=== PATIENT | male | born 1965 | race Caucasian/White ===

== ENCOUNTER 2021-11-19 08:10 | Emergency (ER) | payer SELFPAY ==
[2021-11-19] MEDS ORDERED: GLUCAGON 1 MG/VIAL ONE (08:47)
[2021-11-19] MEDS ORDERED: ONDANSETRON 4 MG/2 ML VIAL ONE (08:48)
[2021-11-19] MEDS ORDERED: NA CHLORIDE 0.9% 1,000 ML ONE (08:48)
[2021-11-19 09:19] LABS: Absolute Lymphocytes (CBC) 2.8 K/uL (0.7-4.9); Hematocrit 48.3 % (39.6-49.0); Lymphocytes % 19.8 % (15.3-44.8); MCV 91.9 fL (80-100); MPV 7.9 fL (7.6-11.3); RBC Red Blood Cell Count 5.25 M/uL (4.33-5.43)
[2021-11-19 09:38] LABS: Albumin 4.1 g/dL (3.4-5.0); Bilirubin Total 0.8 mg/dL (0.2-1.0); Potassium 3.8 mmol/L (3.5-5.1); Protein, Total 8.1 g/dL (6.4-8.2)
--- NOTE | 2021-11-19 10:32 | RAD REPORT ---
EXAM DESCRIPTION: CT - Soft Tissue Neck W/Contr - 11/19/2021 10:08 am CLINICAL HISTORY: retained fb in throat COMPARISON: No comparisons TECHNIQUE: During dynamic enhancement using 100 milliliters nonionic IV contrast, axial 5 millimeter thick images of the neck were obtained. Images extended into the upper chest reaching the mid aortic arch level. All CT scans are performed using dose optimization technique as appropriate and may include automated exposure control or mA/KV adjustment according to patient size. FINDINGS: Cervical esophagus is decompressed with no fluid, foreign body or other finding within the lumen. Air-filled, nondilated thoracic esophagus present from T1 to the mid aortic arch level. Intracranial portion the exam is unremarkable. No globe or orbital content abnormality. Mastoid air c ells and paranasal sinuses are clear of any significant finding. There is some mucosal thickening in the maxillary sinuses. No pharyngeal mucosal mass or asymmetry. No soft palate, tongue base or tonsillar abnormality. Vocal cords and laryngeal structures are unremarkable. A few small nonspecific bilateral cervical lymph nodes are present. No suspicious soft tissue mass. T he parotid, submandibular and thyroid gland tissue show no suspicious findings. IMPRESSION: No esophageal foreign body or other abnormality seen in the cervical esophagus or upper thoracic esophagus to the aortic arch level. No other significant finding and study.
--- NOTE | 2021-11-19 11:28 | RAD REPORT ---
EXAM DESCRIPTION: CT - Thorax Wo Con - 11/19/2021 10:53 am CLINICAL HISTORY: possible fb COMPARISON: Soft Tissue Neck W/Contr dated 11/19/2021 TECHNIQUE: Axial 5 mm thick images of the chest were obtained without IV contrast. All CT scans are performed using dose optimization technique as appropriate and may include automated exposure control or mA/KV adjustment according to patient size. FINDINGS: Approximately 18 millimeter diameter filling defect is present distending the distal esoph jayme at the GE junction. This would be consistent with retained food in the esophagus. The proximal a nd mid portions of the thoracic esophagus show air in fluid in the lumen but no wall thickening or ed seema. No intrinsic mass is suspected. No suspicious mass or acute lung parenchymal finding identified. Left upper lobe and right lower lobe calcified granulomas are seen. A few hilar granulomatous calcifications are present. No pleural thic kening or pleural effusion. No pneumothorax. No abnormal mediastinal or hilar masses or lymphadenopathy seen. No gross aortic or pulmonary artery finding suspected. Assessment is limited in the absence of IV contrast. A few small nonspecific lymp h nodes are seen. No cardiomegaly or pericardial effusion. No chest wall mass or abnormal axillary lymphadenopathy. IMPRESSION: Approximately 18 millimeter diameter food boluses present distending the distal esophagu s at the GE junction.
--- NOTE | 2021-11-19 12:41 | ER ---
Nurse's Notes [facility] Name: Wesley Donis Age: 56 yrs Sex: Male : 1965 Arrival Date: 11/19/2021 Time: 08:10 Bed 12 Private MD: Diagnosis: Esophageal food bolus Presentation: 11/19 08:22 Chief complaint: Patient states: BBQ on Friday and was eating a rib and it got stuck. vg1 Pt states "its the meat that's stuck and this has happened before, july been trying to get it out and nothing is working" Also stated, "I cant drink and when I do it comes right back up, I cant get anything into my stomach". Coronavirus screen: Vaccine status: Patient reports receiving the 2nd dose of the covid vaccine. Client denies travel out of the [place] in the last 14 days. Ebola Screen: Patient denies exposure to infectious person. Patient denies travel to an Ebola-affected area in the 21 days before illness onset. Initial Sepsis Screen: Does the patient meet any 2 criteria? No. Patient's initial sepsis screen is negative. Does the patient have a suspected source of infection? No. Patient's initial sepsis screen is negative. Risk Assessment: Do you want to hurt yourself or someone else? Patient reports no desire to harm self or others. Onset of symptoms was November 17, 2021. 08:22 Method Of Arrival: Ambulatory [facility] 08:22 Acuity: ALEJANDRO 3 vg1 Triage Assessment: 08:24 General: Appears uncomfortable, Behavior is cooperative. Pain: Complains of pain in vg1 throat Pain currently is 6 out of 10 on a pain scale. Historical: - Allergies: 08:24 No Known Allergies; vg1 - Home Meds: 08:24 None [Active]; vg1 - PMHx: 08:24 None; vg1 - PSHx: 08:24 Right Knee ACL; vg1 - Immunization history:: Client reports receiving the 2nd dose of the Covid vaccine. - Social history:: Smoking status: Patient reports the use of cigarette tobacco products, smokes one-half pack cigarettes per day, Reported history of juuling and/or vaping. Screenin:30 Abuse screen: Denies threats or abuse. Denies injuries from another. Nutritional ss screening: No deficits noted. Tuberculosis screening: Never had TB. Fall Risk None identified. Assessment: 10:30 Reassessment: Pt attempted to drink water, OK per MOO Martínez. Pt did not tolerate ss drinking water and vomited just after attempt. NAD noted at this time. Awaiting CT and XRAY to be obtained. 11:34 Reassessment: Patient appears in no apparent distress at this time. Patient and/or ss family updated on plan of care and expected duration. Pain level reassessed. Patient is alert, oriented x 3, equal unlabored respirations, skin warm/dry/pink. awaiting disposition. Pt states, "I can still feel that it is stuck.". Vital Signs: 08:22 BP 131 / 98; Pulse 87; Resp 16; Temp 99.0(TE); Pulse Ox 100% on R/A; Weight 90.72 kg; vg1 Height 6 ft. 1 in. (185.42 cm); Pain 6/10; 12:17 Pulse 73; Resp 18; Pulse Ox 96% on R/A; ld1 15:20 BP 121 / 70; Pulse 82; Resp 16; Pulse Ox 100% on R/A; eh3 08:22 Body Mass Index 26.39 (90.72 kg, 185.42 cm) vg1 ED Course: 08:10 Patient arrived in ED. mr 08:19 [facility] jh7 08:19 Mert Ramey DO is Attending Physician. jh7 08:24 Triage completed. vg1 08:24 Arm band placed on. vg1 08:52 Inserted saline lock: 20 gauge in right forearm, using aseptic technique. Blood tp1 collected. 08:52 Initial lab(s) drawn, by me, sent to lab. tp1 09:03 Bed in low position. Call light in reach. Side rails up X 1. tp1 10:10 CT Soft Tissue Neck W/contr In Process Unspecified. EDMS 10:55 Thorax Wo Con In Process Unspecified. EDMS 11:34 Varsha Sandoval, EARNEST is Primary Nurse. ss 11:43 initiated a transfer with Rommel Lagos Rn with the [facility]. eb 12:00 Report given to EARNEST Allen and EARNEST Crow. ss 12:59 SARS-COV-2 RT PCR (Document "Date of Onset" if Symptomatic) Sent. ld1 14:57 administrative approval given by Rommel Lagos Rn/ patient has been accepted to [facility] 4th floor B419/ Dr. Yao Simmons has accepted the patient in transfer/ report to be called to [phone]. 16:54 No provider procedures requiring assistance completed. Patient transferred, IV remains ld1 in place. Administered Medications: 08:55 Drug: NS 0.9% 1000 ml Route: IV; Rate: 1 bolus; Site: right forearm; tp1 15:28 Follow up: Response: No adverse reaction eh3 08:57 Drug: Zofran (Ondansetron) 4 mg Route: IVP; Site: right antecubital; tp1 15:28 Follow up: Response: No adverse reaction eh3 09:01 Drug: GlucaGen (glucagon) 1 mg Route: IVP; Site: right femoral; tp1 13:05 Drug: Ativan (LORazepam) 1 mg Route: IVP; Site: right forearm; ld1 14:17 Follow up: Response: No adverse reaction ld1 15:20 Follow up: Response: No adverse reaction eh3 15:27 Follow up: Response: No adverse reaction eh3 Medication: 10:30 VIS not applicable for this client. Outcome: 12:40 ER care complete, transfer ordered by MD. ms3 16:54 Transferred by ground EMS to [facility]. ld1 16:54 Condition: stable 16:54 Discharge instructions given to patient, Instructed on the need for transfer. 16:55 Patient left the ED. ld1 Signatures: Dispatcher [employer] [facility] BryantLyubov Shelby, RN RN Vida Burrows Victoria RN RN vg1 Mert Ramey DO DO ms3 Tiffany Davila RN RN ld1 Maddie Lind tp1 Mignon Barnard 3 Tanya Oro FNP FNP 7 Corrections: (The following items were deleted from the chart) 08:26 08:22 Chief complaint: Patient states: BBQ on Friday and was eating a rib and it got vg1 stuck. Pt states "its the meat that's stuck and this has happened before, july been trying to get it out and nothing is working" vg1 09:04 09:03 Inserted saline lock: 20 gauge in right forearm, using aseptic technique. Blood tp1 collected. tp1
--- NOTE | 2021-11-19 12:41 | EDPHYS ---
Physician Documentation [facility] Name: Wesley Donis Age: 56 yrs Sex: Male : 1965 Arrival Date: 11/19/2021 Time: 08:10 Bed 12 Private MD: ED Physician Mert Ramey HPI: 11/19 08:38 This 56 yrs old Male presents to ER via Ambulatory with complaints of Foreign Body In [facility] Throat. 08:38 Onset: The symptoms/episode began/occurred 2 day(s) ago. Patient states that he was [facility] barbecuing Friday and that he got meat stuck in his throat. States that this is happened multiple times and that he has had an EGD before to remove the meat. States that he has not followed up with GI or general surgery. Reports that he cannot tolerate anything by mouth, and states that he feels dehydrated. Reports that he has had nothing to eat since Friday.. Historical: - Allergies: 08:24 No Known Allergies; vg1 - Home Meds: 08:24 None [Active]; vg1 - PMHx: 08:24 None; vg1 - PSHx: 08:24 Right Knee ACL; vg1 - Immunization history:: Client reports receiving the 2nd dose of the Covid vaccine. - Social history:: Smoking status: Patient reports the use of cigarette tobacco products, smokes one-half pack cigarettes per day, Reported history of juuling and/or vaping. ROS: 08:38 Constitutional: Negative for fever, chills, and weight loss, ENT: Negative for injury, 7 pain, and discharge, Cardiovascular: Negative for chest pain, palpitations, and edema, Respiratory: Negative for shortness of breath, cough, wheezing, and pleuritic chest pain, Abdomen/GI: Negative for abdominal pain, nausea, vomiting, diarrhea, and constipation, Back: Negative for injury and pain, Skin: Negative for injury, rash, and discoloration, Neuro: Negative for headache, weakness, numbness, tingling, and seizure. 08:38 Neck: Positive for Foreign body sensation. 08:38 All other systems are negative. Exam: 08:38 Constitutional: This is a well developed, well nourished patient who is awake, alert, jh7 and in no acute distress. ENT: Nares patent. No nasal discharge, no septal abnormalities noted. Oropharynx with no redness, swelling, or masses, exudates, or evidence of obstruction, uvula midline. Mucous membranes moist. Neck: Trachea midline, no thyromegaly or masses palpated, and no cervical lymphadenopathy. Supple, full range of motion without nuchal rigidity, or vertebral point tenderness. No Meningismus. Cardiovascular: Regular rate and rhythm with a normal S1 and S2. No gallops, murmurs, or rubs. Normal PMI, no JVD. No pulse deficits. Respiratory: Lungs have equal breath sounds bilaterally, clear to auscultation and percussion. No rales, rhonchi or wheezes noted. No increased work of breathing, no retractions or nasal flaring. Abdomen/GI: Soft, non-tender, with normal bowel sounds. No distension or tympany. No guarding or rebound. No evidence of tenderness throughout. Back: No spinal tenderness. No costovertebral tenderness. Full range of motion. Skin: Warm, dry with normal turgor. Normal color with no rashes, no lesions, and no evidence of cellulitis. Neuro: Awake and alert, GCS 15, oriented to person, place, time, and situation. Motor strength 5/5 in all extremities. Sensory grossly intact. Normal gait. Vital Signs: 08:22 BP 131 / 98; Pulse 87; Resp 16; Temp 99.0(TE); Pulse Ox 100% on R/A; Weight 90.72 kg; vg1 Height 6 ft. 1 in. (185.42 cm); Pain 6/10; 12:17 Pulse 73; Resp 18; Pulse Ox 96% on R/A; ld1 15:20 BP 121 / 70; Pulse 82; Resp 16; Pulse Ox 100% on R/A; eh3 08:22 Body Mass Index 26.39 (90.72 kg, 185.42 cm) vg1 MDM: 08:27 Patient medically screened. [facility] 10:40 ED course: Reviewed CT soft tissue neck. No foreign body found. Patient failed p.o. jh7 challenge. States that he feels like the meat is stuck in his chest. Will order CT chest with contrast.. 15:34 Data reviewed: vital signs, nurses notes. [facility] 15:36 Data interpreted: Pulse oximetry: is 100 %. Interpretation: normal. Counseling: I had a [facility] detailed discussion with the patient and/or guardian regarding: the historical points, exam findings, and any diagnostic results supporting the discharge/admit diagnosis, the need to transfer to another facility, [facility] does not immediately have the required specialist. 11/19 08:32 Order name: CBC with Diff; Complete Time: 09:31 [facility] 11/19 08:32 Order name: CMP; Complete Time: 09:51 [facility] 11/19 08:32 Order name: CT Soft Tissue Neck W/contr; Complete Time: 12:36 [facility] 11/19 11:47 Order name: SARS-COV-2 RT PCR (Document "Date of Onset" if Symptomatic); Complete Time: eb 14:27 11/19 08:32 Order name: IV Saline Lock; Complete Time: 09:03 [facility] 11/19 08:32 Order name: Labs collected and sent; Complete Time: 09:03 [facility] 11/19 10:51 Order name: Thorax Wo Con; Complete Time: 12:36 EDMS Administered Medications: 08:55 Drug: NS 0.9% 1000 ml Route: IV; Rate: 1 bolus; Site: right forearm; tp1 15:28 Follow up: Response: No adverse reaction eh3 08:57 Drug: Zofran (Ondansetron) 4 mg Route: IVP; Site: right antecubital; tp1 15:28 Follow up: Response: No adverse reaction eh3 09:01 Drug: GlucaGen (glucagon) 1 mg Route: IVP; Site: right femoral; tp1 13:05 Drug: Ativan (LORazepam) 1 mg Route: IVP; Site: right forearm; ld1 14:17 Follow up: Response: No adverse reaction ld1 15:20 Follow up: Response: No adverse reaction eh3 15:27 Follow up: Response: No adverse reaction eh3 Disposition: 12:[address] Yao Simmons and he accepts patient to [address] Disposition Summary: 11/19/21 12:40 Transfer Ordered Transfer Location: Other Acute Care Facility ms3 Reason: Higher level of care ms3 Condition: Stable ms3 Problem: new ms3 Symptoms: are unchanged ms3 Accepting Physician: Yao Simmons(11/19/21 16:55) ld1 Diagnosis - Esophageal food bolus ms3 Forms: - Medication Reconciliation Form ms3 - SBAR form ms3 Signatures: Dispatcher [employer] EDMS Amber Davidson, RN RN vg1 Mert Ramey, DO ms3 Tiffany Davila, RN RN ld1 Maddie Lind tp1 Tanya Oro, FRAME ASSEMBLER FRAME ASSEMBLER jh7 Mignon Barnard eh3 Corrections: (The following items were deleted from the chart) 10:51 10:21 Chest Single View+RAD.RAD.BRZ ordered. EDMS EDMS 10:51 10:40 Thorax W/ Con+CT.RAD.BRZ ordered. EDMS EDMS 16:55 12:40 Yao Simmons ms3 ld1
[2021-11-19] MEDS ORDERED: LORazepam 2 MG/ML VIAL ONE (13:05)
[2021-11-19 17:04] VITALS: TEMP 99
[2021-11-19 17:07] VITALS: BP 121/70; O2SAT 100
== END 2021-11-19 16:55 ==
LOC: ER 08:10
DX: T18.128A Food in esophagus causing other injury, initial encounter (principal); F17.210 Nicotine dependence, cigarettes, uncomplicated; Z20.822 Contact with and (suspected) exposure to COVID-19
CPT/HCPCS: 36415; 70491; 71250; 80053; 85025; 99285; J1610; J2405; J7030; Q9967; U0003